=== PATIENT | female | born 1990 | race Caucasian/White ===

== ENCOUNTER → 2018-01-29 16:38 | Outpatient (CLI) | payer OTHER, SELFPAY ==
[2018-01-29 17:47] LABS: Absolute Lymphocyte Count 2.27 X10^3/ul (0.83-4.51); Absolute Neutrophil Count 5.4 X10^3/uL (2.0-7.7); Basophil# 0.04 X10^3/uL; Basophil% 0.5 % (0-1); Eosinophil# 0.14 X10^3/uL; Eosinophils% 1.6 % (0-5); Hematocrit 40.2 % (37-47); Lymphocyte # 2.27 X10^3/ul (4.0); Lymphocyte % 26.3 % (19-41); Mean Corp Hgb Conc 34.8 g/gl (32-36); Mean Corpuscular Volume 86.3 fL (81-99); Mean Platelet Vol. 12.6 fl (6.2-12.0); Monocyte# 0.76 X10^3/uL; Monocyte% 8.8 % (0-10); Neutrophil % 62.7 % (47-70); Platelet Count 223 K/mm3 (150-450); RBC Distribution Width CV 12.5 % (11.6-14.6); RBC Distribution Width SD 38.7 fl (35.1-43.9); Red Blood Count 4.66 M/mm3 (4.2-5.4); White Blood Count 8.6 K/mm3 (4.4-11.0)
[2018-01-29 17:50] LABS: POSITIVE COUNT NO; POSITIVE DIFFERENTIAL NO; POSITIVE MORPHOLOGY NO
[2018-01-29 19:10] LABS: HIV - WCH Non-Reactive (Nonreactive); Rubella IgG 178.9 IU/mL
[2018-01-30 01:00] LABS: Chlamydia Trachomatis by PCR Negative (Negative); Neisserai gonorrhoeae by PCR Negative (Negative); Probe Check PASS; Sample Adequacy Control PASS; Specimen Processing Control PASS
[2018-01-31 11:27] LABS: HEPATITIS B SURFACE AG Negative (Negative)
[2018-02-01 12:29] LABS: HPV Reflexed? NOT INDICATED
[2018-02-02 02:58] LABS: Rapid Plasmin Reagin (RPR) NONREACTIVE (NONREACTIVE)
== END ==
PROVIDERS: Visit Provider Obstetrics & Gynecology
DX: Z34.91 Encounter for supervision of normal pregnancy, unspecified, first trimester (principal); Z3A.00 Weeks of gestation of pregnancy not specified
CPT/HCPCS: 36415; 85025; 86592; 86703; 86762; 86850; 86900; 87086; 87340; 87491; 87591; 88175; G0145

== ENCOUNTER → 2018-02-26 09:01 | Outpatient (CLI) | payer OTHER, SELFPAY | DX: Z36.82 Encounter for antenatal screening for nuchal translucency (principal) | CPT/HCPCS: 36415 ==

== ENCOUNTER 2018-02-27 16:54 | Emergency (ER) | payer OTHER, SELFPAY ==
[2018-02-27 16:56] VITALS: BP 146/78; PULSE 80; RESP 16; TEMP 36.6; O2SAT 97; BMI 30.9
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
--- NOTE | 2018-02-27 17:23 | ED.DEP ---
ED Disposition - Plan for ED Patient: Disposition: Home or Assisted Living Chief Complaint: Abd Pain Instructions: ED Abdominal Injury Blunt Benign Referrals: Hang Luna [Primary Care Provider] - Shanelle Chaparro MD [STAFF PHYSICIAN] - Keep Elian appointment [facility] [GROUP OF PHYSICIANS] - 3-5 Days
== END 2018-02-27 17:52 | disposition home or self-care (01) ==
LOC: ED 17:40
PROVIDERS: Emergency Provider Emergency Medicine
DX: O9A.211 Injury, poisoning and certain other consequences of external causes complicating pregnancy, first trimester (principal); S39.91XA Unspecified injury of abdomen, initial encounter; Y04.2XXA Assault by strike against or bumped into by another person, initial encounter; Y93.89 Activity, other specified; Y92.89 Other specified places as the place of occurrence of the external cause; Y99.0 Civilian activity done for income or pay; Z79.899 Other long term (current) drug therapy; Z3A.13 13 weeks gestation of pregnancy
CPT/HCPCS: 99282

== ENCOUNTER → 2018-03-29 16:52 | Outpatient (CLI) | payer OTHER, SELFPAY ==
[2018-03-29 19:19] LABS: Chlamydia Trachomatis by PCR Negative (Negative); Neisserai gonorrhoeae by PCR Negative (Negative); Probe Check PASS; Sample Adequacy Control PASS; Specimen Processing Control PASS
== END ==
PROVIDERS: Visit Provider Nurse Practitioner Women's Health
DX: N89.8 Other specified noninflammatory disorders of vagina (principal)
CPT/HCPCS: 87070; 87205; 87491; 87591

== ENCOUNTER 2018-04-10 18:27 | Outpatient (CLI) | payer OTHER, SELFPAY | END 2018-04-10 18:40 | disposition home or self-care (01) | LOC: LAB.FUTURE 18:31 | DX: Z36.9 Encounter for antenatal screening, unspecified (principal) ==

== ENCOUNTER → 2018-04-10 18:35 | Outpatient (CLI) | payer OTHER, SELFPAY ==
--- NOTE | 2018-04-10 18:33 | US_ITS ---
STUDY: SECOND AND THIRD TRIMESTER OBSTETRICAL ULTRASOUND REASON FOR EXAM: Female, 27 years old. ANATOMY SCAN LMP: TECHNIQUE: Transabdominal PRIOR ULTRASOUND: None. FINDINGS: There is a single intrauterine fetus. The fetus is in a cephalic presentation. There is demonstrated cardiac activity with a heart rate of 155 bpm. There is a normal amniotic fluid volume. The largest amniotic fluid pocket measures 3.8 cm. The placenta is posterior in location and is not low lying. There are Grade 1 placental changes. The cervix measures 33MM in length. The adnexal regions are not visualized. BIOMETRY: BPD: 43MM: 19 weeks, 0 days HC: 163MM: 19 weeks, 1 days AC: 139MM: 19 weeks, 2 days FL: 29MM: 18 weeks, 6 days CI: 79 FL/BPD: 68 FL/HC: FL/AC: 21 HC/AC: 1.18 age by current US: 19 weeks, 1 days. ERICK by current US: 10.15.18. Estimated weight: 272 grams, +/- 40 grams, 26 %. Age by LMP: 19 weeks, 3 days. ERICK by LMP: 10.13.18. ANATOMY: Gender: Male Cranium: Normal lateral ventricles. Normal choroid plexus. Normal cerebellum. Normal cisterna magna. Normal face, nose and lips. Chest: Normal 4-chamber heart. Abdomen/Pelvis: Normal diaphragm. Normal stomach. Normal abdominal wall. Normal cord insertion. Normal 3 vessel cord. Normal kidneys. Normal bladder. Spine: Normal cervical spine. Normal thoracic spine. Normal lumbar spine. Normal sacrum. Extremities: Normal bilateral upper extremities. Normal bilateral lower extremities. US/OB Anatomy Scan IMPRESSION: There is a single live intrauterine with a heart rate of 155 bpm. age by current US: 19 weeks, 1 days. ERICK by current US: 10.15.18. Normal anatomic survey Electronically Signed: Dereck Bush MD at 20:40 EDT , Service support ,
== END ==
PROVIDERS: Visit Provider Nurse Practitioner Women's Health
DX: Z36.9 Encounter for antenatal screening, unspecified (principal); Z3A.19 19 weeks gestation of pregnancy
CPT/HCPCS: 76805

== ENCOUNTER → 2018-06-06 15:42 | Outpatient (CLI) | payer OTHER, SELFPAY ==
[2018-06-06 17:23] LABS: Absolute Lymphocyte Count 2.25 X10^3/ul (0.83-4.51); Absolute Neutrophil Count 9.7 X10^3/uL (2.0-7.7); Basophil# 0.02 X10^3/uL; Basophil% 0.2 % (0-1); Eosinophil# 0.17 X10^3/uL; Eosinophils% 1.3 % (0-5); Hematocrit 35.4 % (37-47); Hemoglobin 12.1 g/dl (12.0-15.0); Lymphocyte # 2.25 X10^3/ul (4.0); Lymphocyte % 17.4 % (19-41); Mean Corp Hgb Conc 34.2 g/gl (32-36); Mean Corpuscular Hgb 31.1 pg (27.0-32.0); Mean Platelet Vol. 11.5 fl (6.2-12.0); Monocyte# 0.75 X10^3/uL; Monocyte% 5.8 % (0-10); Neutrophil # 9.66 X10^3/uL (2.7-7.7); Neutrophil % 74.5 % (47-70); Platelet Count 182 K/mm3 (150-450); RBC Distribution Width CV 13.1 % (11.6-14.6); Red Blood Count 3.89 M/mm3 (4.2-5.4)
[2018-06-06 17:27] LABS: POSITIVE COUNT NO; POSITIVE DIFFERENTIAL NO; POSITIVE MORPHOLOGY NO
[2018-06-06 17:33] LABS: Glucose Challenge Gest 1H 50g 121 mg/dL (70-140)
== END ==
PROVIDERS: Visit Provider Nurse Practitioner Women's Health
DX: Z34.92 Encounter for supervision of normal pregnancy, unspecified, second trimester (principal); Z3A.26 26 weeks gestation of pregnancy
CPT/HCPCS: 82950; 85025

== ENCOUNTER → 2018-07-31 17:03 | Outpatient (CLI) | payer OTHER, SELFPAY ==
[2018-07-31 18:03] LABS: Protein, Urine (Random) 35.6 mg/dL (<11.9); Protein:Creat Ratio 183 mg/g CRE (0-200)
== END ==
PROVIDERS: Visit Provider Obstetrics & Gynecology
DX: R80.9 Proteinuria, unspecified (principal)
CPT/HCPCS: 82570; 84156

== ENCOUNTER → 2018-08-07 15:54 | Outpatient (CLI) | payer OTHER, SELFPAY ==
[2018-08-07 20:35] LABS: Group B Strep DNA By PCR Negative (Negative); Internal Control PASS; Probe Check PASS; Specimen Processing Control PASS
== END ==
PROVIDERS: Visit Provider Nurse Practitioner Women's Health
DX: Z34.91 Encounter for supervision of normal pregnancy, unspecified, first trimester (principal)
CPT/HCPCS: 87081; 87653

== ENCOUNTER → 2018-08-14 12:25 | Outpatient (CLI) | payer OTHER, SELFPAY ==
[2018-08-14 12:47] LABS: ROM Internal Control Test YES-OK TO RESULT pt. (Internal QC); ROM Patient Test Negative (Negative)
== END ==
PROVIDERS: Referring Provider Nurse Practitioner Women's Health; Visit Provider Nurse Practitioner Women's Health
DX: O26.899 Other specified pregnancy related conditions, unspecified trimester (principal); N89.8 Other specified noninflammatory disorders of vagina
CPT/HCPCS: 84112

== ENCOUNTER 2018-08-30 09:30 | Inpatient (IN) | payer OTHER, SELFPAY ==
[2018-08-30 09:49] VITALS: BMI 35.5
[2018-08-30 10:14] LABS: Hematocrit 37.2 % (37-47); Hemoglobin 13.1 g/dl (12.0-15.0); Mean Corp Hgb Conc 35.2 g/gl (32-36); Mean Corpuscular Hgb 31.3 pg (27.0-32.0); Mean Corpuscular Volume 88.8 fL (81-99); Mean Platelet Vol. 11.4 fl (6.2-12.0); Platelet Count 183 K/mm3 (150-450); RBC Distribution Width CV 13.7 % (11.6-14.6); RBC Distribution Width SD 43.5 fl (35.1-43.9); Red Blood Count 4.19 M/mm3 (4.2-5.4); White Blood Count 11.8 K/mm3 (4.4-11.0)
[2018-08-30 10:19] LABS: Scan Indicated on CBC? Y/N NO
[2018-08-30] MEDS: Lactated Ringers 1,000 ML 50 ML IV ×3 (10:30→18:14)
[2018-08-30] MEDS: Oxytocin 30 units/NS 500 ml 30 UNITS/500 ML IV.SOLN IV (10:47)
[2018-08-30] MEDS: fentaNYL-bupivacaine (epidural) 100 ML BAG EPIDURAL (14:53)
--- NOTE | 2018-08-30 17:39 | PCM.HP.OB ---
- Problem List (1) tubal ligation planned Status: Acute (2) screening encounter Status: Acute Comment: NT done 02/26/18 (3) Supervision of normal in first trimester Status: Acute Qualifiers: Comment: PRR ERICK 09/01/18 [facility] Melody Ramos gary History Date of Admission: 08/30/18 Final ERICK: 09/01/18 Gestational age: 39 Weeks and 5 Days History of this : This is a 27 year-old, at 39 weeks gestational age presents for IOL secondary to maternal request. she denies any abnormal vb lof admits good fm no regular ctx. Surgical History: Surgical History (Last Reviewed 08/20/18 @ 12:19 by Miriam Ariza) Cholecystectomy planned Allergies amoxicillin Adverse Reaction (Verified 08/30/18 10:09) Fever and skin rash Penicillins Adverse Reaction (Verified 08/30/18 10:09) Fever and skin rash Home Medications: Home Medications Vits [Prenatabs FA ] 1 tab PO DAILY 11/17/13 loratadine 10 mg tablet 10 mg PO QDAY 01/22/18 Smoking Status: Light Smoker (<10/day) Alcohol: None Number of Fetus(es): 1 Heart Tracin moderate variability reactive no decels cat I TOCO Analysis: irregular History Past Pregnancies: Past PregnanciesPregancy History 4 Elective abortions Hx Para 2 Spontaneous abortions Hx # Term Pregnancies Ectopic pregnancies Hx # Pregnancies Multiple births # of living children Past Pregnancies Del. Date Name GA/Weeks Outcome Route Bth Weight Infant Gen Labor Lgth Anesthesia Del Locatn Provider FOB Unknown 2013 Rachel live - full term [id number] SM Unknown 2015 Melody Caraballo live - full term [id number] SM Expected Delivery Method: Spontaneous Vaginal Describe any other labor & delivery plans:: OB Visit. ERICK Calculator. Estimated Delivery Date 09/01/18. Based on LMP (certain) 11/25/17. Current WG 39w 2d. Number 1. Expected Delivery Route/Plan. . Specific Issue/Plans. flu vaccine given. minichart given: []. tdap vaccine: considering. rhogam: NA. LARC form signed: declines/plans BTO. labor support person: Gary. pain management: epidural. cut cord/dad catch: yes. : yes Review of Systems Constitutional: Denies: Fever, Malaise Eyes: Denies: Blurred vision, Vision Change HEENT: Denies: Head Aches, Visual Changes Cardiovascular: Denies: Chest Pain, Palpitations Respiratory: Denies: Cough, Shortness of Breath, Wheezing Gastrointestinal: Denies: Abdominal Pain, Diarrhea, Nausea, Vomiting Genitourinary: Denies: Dysuria, Hematuria Musculoskeletal: Denies: Joint Pain, Muscle pain Skin: Denies: Lesions, Rash Neurological: Denies: Blurred vision, Focal weakness, Headaches Psychiatric: Denies: Anxiety, Depression Endocrine: Denies: Heat/ Cold Intolerance Hematologic/ Lymphatic: Denies: Easy Bruising, Easy Bleeding Physical Exam General: Alert, Cooperative, No apparent distress HEENT: Atraumatic, Normocephalic. Negative for: Thyromegaly, Lymphadenopathy Cardiovascular: Regular rate Lungs: Normal air movement Abdomen: Soft, Non Tender, Gravid Neurological: Deep Tendon Reflexes 2+/4 and Symmetrical, Neuro grossly intact. Negative for: Clonus PARKING SUPERVISOR: Normal external genitalia. Negative for: Vulvar lesions Estimated gestational size: Appropriate for gestational size Presentation: Cephalic Assessment/Plan All Active Problems (Last Reviewed 08/27/18 @ 11:27 by Nola Land) tubal ligation planned (Acute) screening encounter (Acute) Supervision of normal in first trimester (Acute) This is a 27 year-old, at 39 weeks gestational age. Patient presents IOL pit Pain management: plans epidural. GBS negative Management of any complications: none I have reviewed the [facility] and made any clinically relevant updates.
--- NOTE | 2018-08-30 17:44 | HP.PCM_ITS ---
- Problem List (1) tubal ligation planned Status: Acute (2) screening encounter Status: Acute Comment: NT done 02/26/18 (3) Supervision of normal in first trimester Status: Acute Qualifiers: Comment: PRR ERICK 09/01/18 [facility] Melody Ramos gary History Date of Admission: 08/30/18 Final ERICK: 09/01/18 Gestational age: 39 Weeks and 5 Days History of this : This is a 27 year-old, at 39 weeks gestational age presents for IOL secondary to maternal request. she denies any abnormal vb lof admits good fm no regular ctx. Surgical History: Surgical History (Last Reviewed 08/20/18 @ 12:19 by Miriam Ariza) Cholecystectomy planned Allergies amoxicillin Adverse Reaction (Verified 08/30/18 10:09) Fever and skin rash Penicillins Adverse Reaction (Verified 08/30/18 10:09) Fever and skin rash Home Medications: Home Medications Vits [Prenatabs FA ] 1 tab PO DAILY 11/17/13 loratadine 10 mg tablet 10 mg PO QDAY 01/22/18 Smoking Status: Light Smoker (<10/day) Alcohol: None Number of Fetus(es): 1 Heart Tracin moderate variability reactive no decels cat I TOCO Analysis: irregular History Past Pregnancies: Past PregnanciesPregancy History 4 Elective abortions Hx Para 2 Spontaneous abortions Hx # Term Pregnancies Ectopic pregnancies Hx # Pregnancies Multiple births # of living children Past Pregnancies Del. Date Name GA/Weeks Outcome Route Bth Weight Infant Gen Labor Lgth Anesthesia Del Locatn Provider FOB Unknown 2013 Rachel live - full term [id number] SM Unknown 2015 Melody Caraballo live - full term [id number] SM Expected Delivery Method: Spontaneous Vaginal Describe any other labor & delivery plans:: OB Visit. ERICK Calculator. Estimated Delivery Date 09/01/18. Based on LMP (certain) 11/25/17. Current WG 39w 2d. Number 1. Expected Delivery Route/Plan. . Specific Issue/Plans. flu vaccine given. minichart given: []. tdap vaccine: considering. rhogam: NA. LARC form signed: declines/plans BTO. labor support person: Gary. pain management: epidural. cut cord/dad catch: yes. : yes Review of Systems Constitutional: Denies: Fever, Malaise Eyes: Denies: Blurred vision, Vision Change HEENT: Denies: Head Aches, Visual Changes Cardiovascular: Denies: Chest Pain, Palpitations Respiratory: Denies: Cough, Shortness of Breath, Wheezing Gastrointestinal: Denies: Abdominal Pain, Diarrhea, Nausea, Vomiting Genitourinary: Denies: Dysuria, Hematuria Musculoskeletal: Denies: Joint Pain, Muscle pain Skin: Denies: Lesions, Rash Neurological: Denies: Blurred vision, Focal weakness, Headaches Psychiatric: Denies: Anxiety, Depression Endocrine: Denies: Heat/ Cold Intolerance Hematologic/ Lymphatic: Denies: Easy Bruising, Easy Bleeding Physical Exam General: Alert, Cooperative, No apparent distress HEENT: Atraumatic, Normocephalic. Negative for: Thyromegaly, Lymphadenopathy Cardiovascular: Regular rate Lungs: Normal air movement Abdomen: Soft, Non Tender, Gravid Neurological: Deep Tendon Reflexes 2+/4 and Symmetrical, Neuro grossly intact. Negative for: Clonus WELFARE VISITOR: Normal external genitalia. Negative for: Vulvar lesions Estimated gestational size: Appropriate for gestational size Presentation: Cephalic Assessment/Plan All Active Problems (Last Reviewed 08/27/18 @ 11:27 by Nola Land) tubal ligation planned (Acute) screening encounter (Acute) Supervision of normal in first trimester (Acute) This is a 27 year-old, at 39 weeks gestational age. Patient presents IOL pit Pain management: plans epidural. GBS negative Management of any complications: none I have reviewed the [facility] and made any clinically relevant updates.
[2018-08-30] MEDS: Ondansetron 4 MG/2 ML Vial IV (17:51)
[2018-08-30] MEDS: Oxytocin 30 units/NS 500 ml 30 UNITS/500 ML IV.SOLN 334 UNITS IV (19:26)
--- NOTE | 2018-08-30 19:34 | PCM.OB.VAG ---
- Problem List (1) tubal ligation planned Status: Acute (2) screening encounter Status: Acute Comment: NT done 02/26/18 (3) Supervision of normal in first trimester Status: Acute Qualifiers: Comment: PRR ERICK 09/01/18 [facility] Melody Ramos gary Vaginal Delivery Maternal Presentation: Elective Induction Induction of labor maternal discomfort and request Method of Induction: Pitocin Amniotic Membrane Rupture Type: Artificial Amniotic Fluid Description: Clear Final ERICK: 09/01/18 Gestational age: 39 Weeks and 5 Days Date of Procedure: 08/30/18 Pre-Operative Diagnosis: Induction of labor Post-Operative Diagnosis: Same Surgery/ Procedure Performed: Spontaneous Vaginal Delivery Type of Anesthesia: Epidural Description of Procedure: Patient began pushing and delivered the head in the TANNER presentation. The head was delivered atraumatically. The anterior and posterior shoulders delivered without complication followed by the rest of the and the infant was placed on the maternal abdomen. Delayed cord clamping was employed for approximately 60 seconds. Cord was clamped and cut and gentle traction was applied to the cord and the placenta delivered spontaneously immediately following it was noted to be intact with three-vessel cord. The perineum and vagina were inspected and noted to have no laceration. EBL was 200 cc. Patient and infant tolerated delivery well. Presentation: TANNER Placental Delivery Description: Spontaneous Placenta Disposition: [facility] Cord Vessel Description: 3 Vessels Cord Entanglement: None Estimated Blood Loss: 200 Infant A gender: Male Episiotomy Description: None Laceration: None Medications given after delivery: IV Pitocin Complications: None
--- NOTE | 2018-08-30 19:35 | PCM.DCVAG ---
Discharge Diet: No Restrictions Discharge Activity: Return to Normal Activity, May not drive while taking narcotic pain medications., May Shower May resume sexual activity in: 4-6 weeks Call your doctor if your incision/area has: Continuous Slow Oozing, Sudden Increased Bleeding, Increased Pain/ Swelling, Increased Redness, Foul Smelling Discharge Additional Instructions: If you experience any of the following, contact your healthcare provider. Bleeding that soaks a pad every hour for 2 hours Fever 100.4 or higher Unrelieved incision or abdominal pain Swelling, redness, discharge or bleeding from your incision or episiotomy site Your incision begins to separate Problems urinating (including inability to urinate or burning while urinating). Visual changes Severe headache Flu-like symptoms Pain or redness in one of both of your breasts Pain, warmth, tenderness or swelling in your legs, especially the calf area Frequent nausea and vomiting Symptoms of depression or anxiety If you experience any of the following, call 911 or go to the nearest Emergency Room. Chest pain Problems breathing Seizure activity Partial or complete paralysis of a body part, slurred speech, weakness or drooping of the face, or a sudden inability to walk or hold your balance Allergies/Adverse Reactions: Allergies amoxicillin Adverse Reaction (Verified 08/30/18 10:09) Fever and skin rash Penicillins Adverse Reaction (Verified 08/30/18 10:09) Fever and skin rash Medications to take at Discharge Vits [Prenatabs FA ] 1 tab PO DAILY 11/17/13 loratadine 10 mg tablet 10 mg PO QDAY 01/22/18 Please Follow Up With: Shanelle Chaparro MD - [phone] When: Call to make an appointment with your doctor in 6 weeks. If you had elevated Blood pressure or 4th degree laceration you will need to be seen in 2 weeks. Primary Care Physician: Care Physician,No Primary [Primary Care Provider] - Test Results: Test results from this visit will be discussed in further detail at your follow-up appointment, if applicable.
--- NOTE | 2018-08-30 19:36 | DCINST_ITS ---
Discharge Diet: No Restrictions Discharge Activity: Return to Normal Activity, May not drive while taking narcotic pain medications., May Shower May resume sexual activity in: 4-6 weeks Call your doctor if your incision/area has: Continuous Slow Oozing, Sudden Increased Bleeding, Increased Pain/ Swelling, Increased Redness, Foul Smelling Discharge Additional Instructions: If you experience any of the following, contact your healthcare provider. * Bleeding that soaks a pad every hour for 2 hours * Fever 100.4 or higher * Unrelieved incision or abdominal pain * Swelling, redness, discharge or bleeding from your incision or episiotomy site * Your incision begins to separate * Problems urinating (including inability to urinate or burning while urinating). * Visual changes * Severe headache * Flu-like symptoms * Pain or redness in one of both of your breasts * Pain, warmth, tenderness or swelling in your legs, especially the calf area * Frequent nausea and vomiting * Symptoms of depression or anxiety If you experience any of the following, call 911 or go to the nearest Emergency Room. * Chest pain * Problems breathing * Seizure activity * Partial or complete paralysis of a body part, slurred speech, weakness or drooping of the face, or a sudden inability to walk or hold your balance Allergies/Adverse Reactions: Allergies amoxicillin Adverse Reaction (Verified 08/30/18 10:09) Fever and skin rash Penicillins Adverse Reaction (Verified 08/30/18 10:09) Fever and skin rash Medications to take at Discharge Vits [Prenatabs FA ] 1 tab PO DAILY 11/17/13 loratadine 10 mg tablet 10 mg PO QDAY 01/22/18 Please Follow Up With: Shanelle Chaparro MD - [phone] When: Call to make an appointment with your doctor in 6 weeks. If you had elevated Blood pressure or 4th degree laceration you will need to be seen in 2 weeks. Primary Care Physician: Care Physician,No Primary [Primary Care Provider] - Test Results: Test results from this visit will be discussed in further detail at your follow- up appointment, if applicable.
[2018-08-30] MEDS: Oxytocin 30 units/NS 500 ml 30 UNITS/500 ML IV.SOLN 167 UNITS IV (19:56)
[2018-08-31] VITALS (11 sets, daily range): BP systolic 105–120; BP diastolic 57–74; PULSE 75–89; RESP 16–18; TEMP 36.1–36.9; O2SAT 96–98; BMI 35.5
[2018-08-31] MEDS: Naproxen 250 MG Tablet PO ×3 (00:09→16:59)
[2018-08-31] MEDS: 0.9% Saline Lock 10 ML Syringe IV (06:21)
[2018-08-31] MEDS: Lactated Ringers 1,000 ML 125 ML IV ×2 (06:21→08:20)
--- NOTE | 2018-08-31 07:37 | PCM.OPRPT ---
Problem List (1) tubal ligation planned Status: Acute (2) screening encounter Status: Acute Comment: NT done 02/26/18 (3) Supervision of normal in first trimester Status: Acute Qualifiers: Comment: PRR ERICK 09/01/18 Boy-Gary Ramos gary Report of Operation Date of Procedure: 08/31/18 Pre-Operative Diagnosis: sterilization Surgery/Procedure Performed:: tubal ligation Description of Surgical Findings:: Normal uterus tubes and ovaries Type of Anesthesia:: Epidural, IV Sedation Specimen's removed: None Drains: rogers Estimated Blood Loss (mL): 200 Fluids Replaced: cryStalloid Description of Procedure: Patient was taken to the operating room and epidural anesthesia was found to be adequate. Patient was placed in the dorsal supine position was prepped and draped in normal sterile fashion. Rogers catheter was used to drain the bladder. Infra umbilical incision was made with a scalpel after injecting with marcaine and carried through the underlying layer of the fascia with a scalpel fascial incision was extended bilaterally with Randolph scissors and bowel packed away and the right fallopian tube identified confirmed to be fallopian tube by following it out to the fimbria and a Filshie clip was applied in the mid interstitial portion of the fallopian tube noting to completely transect the tube. This was repeated on the left side where the tube was identified and followed out to the fimbria and confirmed to be fallopian tube and then the mid interstitial portion of the tube was completely transected with the Filshie clip. Excellent hemostasis was noted. Fascia was closed with 0 Vicryl and skin closed with 3-0 Monocryl. No complications. Patient was taken recovery in stable condition. Grafts/Implants Used: filshie - Complications none
--- NOTE | 2018-08-31 07:37 | PCM.PN.OB ---
Subjective: doing well no complaints - Physical Exam Vital Signs Temp Pulse Resp BP Pulse Ox 97.3 F L 82 16 114/67 98 08/31/18 04:35 08/31/18 04:35 08/31/18 04:35 08/31/18 04:35 08/31/18 00:00 Oxygen Delivery Method Room Air Weight: 200 lb 9.93 oz Body Mass Index (BMI) 35.5 Intake and Output for Last 24 Hours 08/29/18 08/30/18 08/31/18 23:59 23:59 23:59 Intake Total 480 / 480 Output Total 2200 / 2200 500 / 500 Balance -1720 / -1720 -500 / -500 Laboratory Tests Past 24 Hrs 08/30/18 08/30/18 09:50 09:50 WBC 11.8 H RBC 4.19 L Hgb 13.1 Hct 37.2 MCV 88.8 MCH 31.3 MCHC 35.2 RDW 13.7 RDW Differential 43.5 Plt Count 183 MPV 11.4 Blood Type O POSITIVE Antibody Screen NEGATIVE Medical Necessity - Tobacco Use Smoking Status: Light Smoker (<10/day) Assessment/Plan All Active Problems (Last Reviewed 08/27/18 @ 11:27 by Nola Land) tubal ligation planned (Acute) screening encounter (Acute) Supervision of normal in first trimester (Acute) tubal today will await recovery to see if dc today or tomorrow
[2018-08-31] MEDS: Bupivacaine Mpf 0.5% 30 ML VIAL (07:46)
[2018-08-31] MEDS: Senna/Docusate Sodium 1 Tablet PO (09:05)
[2018-08-31] MEDS: Prenatal Vits Tablet 1 TABLET PO (13:46)
[2018-08-31] MEDS: Acetaminophen 500 MG Tablet 1000 MG PO (13:46)
[2018-08-31] MEDS: oxyCODONE 5 MG Tablet PO (19:43)
[2018-09-01] MEDS: oxyCODONE 5 MG Tablet PO ×3 (00:05→09:51)
[2018-09-01 02:06] VITALS: BP 103/59; PULSE 70; RESP 16; TEMP 36.7; O2SAT 96
[2018-09-01 07:55] VITALS: BP 114/63; PULSE 77; RESP 16; TEMP 36.7
[2018-09-01] MEDS: Prenatal Vits Tablet 1 TABLET PO (09:51)
--- NOTE | 2018-09-01 10:23 | PCM.PN.OB ---
Subjective: doing well pain controlled no cp sob n v - Physical Exam General: Alert, Oriented x3 Vital Signs Temp Pulse Resp BP Pulse Ox 98.1 F 77 16 114/63 96 09/01/18 07:55 09/01/18 07:55 09/01/18 07:55 09/01/18 07:55 09/01/18 02:06 Oxygen Delivery Method Room Air Weight: 200 lb 9.93 oz Body Mass Index (BMI) 35.5 Intake and Output for Last 24 Hours 08/30/18 08/31/18 09/01/18 23:59 23:59 23:59 Intake Total 480 / 480 500 / 500 Output Total 2200 / 2200 1300 / 1300 Balance -1720 / -1720 -800 / -800 Medical Necessity - Tobacco Use Smoking Status: Light Smoker (<10/day) Assessment/Plan All Active Problems (Last Reviewed 08/27/18 @ 11:27 by Nola Land) tubal ligation planned (Acute) screening encounter (Acute) Supervision of normal in first trimester (Acute) s/p PPD # 2 1. routine post delivery care 2. breast feeding- support given 3. rh positive 4. rubella immune
== END 2018-09-01 11:25 | disposition home or self-care (01) | DRG 798 ==
PROVIDERS: Admitting Provider Obstetrics & Gynecology; Referring Provider Obstetrics & Gynecology; Visit Provider Obstetrics & Gynecology
PROC: 0UL70ZZ Occlusion of Bilateral Fallopian Tubes, Open Approach (ICD-10-PCS; principal; 2018-08-31 07:15)
DX: O75.89 Other specified complications of labor and delivery (principal); O99.334 Smoking (tobacco) complicating childbirth; Z30.2 Encounter for sterilization; Z3A.39 39 weeks gestation of pregnancy; Z37.0 Single live birth
CPT/HCPCS: 59025; 59050; 85027; 86850; 86900; 99218; J7120; 90686; A4216; G0378; J2405

== ENCOUNTER → 2019-10-24 17:09 | Outpatient (CLI) | payer BC, SELFPAY ==
[2019-10-24 16:07] VITALS: BMI 32.6
[2019-10-24 17:28] LABS: Absolute Lymphocyte Count 2.43 X10^3/uL (0.83-4.51); Absolute Neutrophil Count 6.4 X10^3/uL (2.0-7.7); Basophil# 0.07 X10^3/uL; Basophil% 0.7 % (0-1); Eosinophil# 0.17 X10^3/uL; Eosinophils% 1.7 % (0-5); Hematocrit 44.4 % (37-47); Lymphocyte # 2.43 X10^3/ul (4.0); Lymphocyte % 24.6 % (19-41); Mean Corp Hgb Conc 33.8 g/dL (32-36); Mean Corpuscular Hgb 29.4 pg (27.0-32.0); Mean Corpuscular Volume 86.9 fL (81-99); Mean Platelet Vol. 12.2 fl (6.2-12.0); Monocyte# 0.74 X10^3/uL; Monocyte% 7.5 % (0-10); NRBC Flagged by Analyzer 0 % (0-5); Neutrophil # 6.43 X10^3/uL (2.7-7.7); Neutrophil % 65.1 % (47-70); Platelet Count 269 K/mm3 (150-450); RBC Distribution Width CV 12.1 % (11.6-14.6); RBC Distribution Width SD 38.5 fl (35.1-43.9); Red Blood Count 5.11 M/mm3 (4.2-5.4); White Blood Count 9.9 K/mm3 (4.4-11.0)
[2019-10-24 18:17] LABS: T4 Free Direct 1.01 ng/dL (0.76-1.46); Thyroid Stim Hormone (TSH) 1.63 uIU/mL (0.358-3.74)
== END ==
PROVIDERS: Referring Provider Obstetrics & Gynecology; Visit Provider Obstetrics & Gynecology
DX: N93.9 Abnormal uterine and vaginal bleeding, unspecified (principal)
CPT/HCPCS: 36415; 84439; 84443; 85025

== ENCOUNTER → 2019-11-01 11:17 | Outpatient (CLI) | payer BC, SELFPAY ==
[2019-10-24 16:07] VITALS: BMI 32.6
--- NOTE | 2019-11-01 11:20 | US_ITS ---
STUDY: ULTRASOUND OF THE FEMALE PELVIS - COMPLETE REASON FOR EXAM: Female, 29 years old. . Dysfunctional uterine bleeding. LMP: October 04, 2019. TECHNIQUE: Transabdominal and Transvaginal TECHNICAL QUALITY: Adequate. COMPARISON: None. FINDINGS: The uterus is anteverted and is in a midline position. The uterus measures 8.7 cm x 4.1 cm x 4.8 cm. There is a Nabothian cyst of the cervix. The endometrium measures 9.3 mm in thickness, and is hyperechoic. There is no demonstrated endometrial mass. There is no demonstrated myometrial mass. I.U.D. - The patient does not have an I.U.D. The right ovary is visualized. The right ovary measures 3.3 cm x 2.2 cm x 2.4 cm. There is no right ovarian cyst or ovarian mass. There is no visualized right adnexal mass or complex lesion. There is normal arterial and normal venous vascularity. The left ovary is visualized. The left ovary measures 2.2 cm x 2.2 cm x 1.5 cm. There is no left ovarian cyst or ovarian mass. There is no visualized left adnexal mass or complex lesion. There is normal arterial and normal venous vascularity. There is no fluid in the cul-de-sac. The pre void volume of the bladder was 615 ml. Polycystic ovary disease: No. US/Pelvic (Non ) IMPRESSION: Normal female pelvis. Electronically Signed: Inocente Cary, at 14:48 EST , Service support ,
--- NOTE | 2019-11-01 11:44 | US_ITS ---
STUDY: ULTRASOUND OF THE FEMALE PELVIS - COMPLETE REASON FOR EXAM: Female, 29 years old. . Dysfunctional uterine bleeding. LMP: October 04, 2019. TECHNIQUE: Transabdominal and Transvaginal TECHNICAL QUALITY: Adequate. COMPARISON: None. FINDINGS: The uterus is anteverted and is in a midline position. The uterus measures 8.7 cm x 4.1 cm x 4.8 cm. There is a Nabothian cyst of the cervix. The endometrium measures 9.3 mm in thickness, and is hyperechoic. There is no demonstrated endometrial mass. There is no demonstrated myometrial mass. I.U.D. - The patient does not have an I.U.D. The right ovary is visualized. The right ovary measures 3.3 cm x 2.2 cm x 2.4 cm. There is no right ovarian cyst or ovarian mass. There is no visualized right adnexal mass or complex lesion. There is normal arterial and normal venous vascularity. The left ovary is visualized. The left ovary measures 2.2 cm x 2.2 cm x 1.5 cm. There is no left ovarian cyst or ovarian mass. There is no visualized left adnexal mass or complex lesion. There is normal arterial and normal venous vascularity. There is no fluid in the cul-de-sac. The pre void volume of the bladder was 615 ml. Polycystic ovary disease: No. US/Transvaginal Non- IMPRESSION: Normal female pelvis. Electronically Signed: Inocente Cary, at 14:48 EST , Service support ,
== END ==
LOC: US 11:18
PROVIDERS: Referring Provider Obstetrics & Gynecology; Visit Provider Obstetrics & Gynecology
DX: N93.8 Other specified abnormal uterine and vaginal bleeding (principal)
CPT/HCPCS: 76830; 76856; 93976

== ENCOUNTER 2019-11-26 05:35 | Day surgery (SDC) | payer BC, SELFPAY ==
[2019-10-24 16:07] VITALS: BMI 32.6
[2019-11-06 14:25] VITALS: BMI 33.1
--- NOTE | 2019-11-24 01:57 | PCM.HPOB.BLA ---
- Problem List (1) Abnormal uterine bleeding Status: Acute Comment: cbc tsh us and plan tvh bs History and Physical Date of Admission: 11/26/19 Intake Vital Signs 11/06/19 Height 5 ft 3 in 11/06/19 Weight: 187 lb 4 oz 11/06/19 BP 121/80 H Intake Visit Reasons: Pre-operative exam for gynecologic surgery [facility] Required: No Is patient in pain?: No Allergies amoxicillin Adverse Reaction (Verified 11/06/19 14:45) Fever and skin rash Penicillins Adverse Reaction (Verified 11/06/19 14:45) Fever and skin rash Medications cetirizine 10 mg capsule 10 mg PO DAILY 10/24/19 [History Confirmed 11/06/19] Post menopausal: No Patient : No : No PFSH Surgical History H/O tubal ligation (Acute) Hx of cholecystectomy (Acute) Family History Grandmother Colon cancer Social History (Updated 11/07/19 @ 04:36 by Shanelle Chaparro MD) Smoking Status: Light Smoker (<10/day) alcohol intake: never substance use type: does not use caffeine: Yes what type of physical activity do you participate in: none seatbelt use: always do you feel safe at home: Yes additional social history: [facility] Patient works at [employer] Preoperative exam for gynecologic surgery: Details: SARKIS TSE is a 29 year old who presents for preop appointment. she is having a hysterectomy for AUB not controlled with medical management. she is not a good candidate for ablation. Female Reproductive History Cycle Length: 21-35 Bleeding Duration: 7 Questions: Metorrhagia: No, Sexually active: Yes, Dyspareunia: Yes, PCB: No Pregancy History 4 Elective abortions Hx Para 3 Spontaneous abortions Hx # Term Pregnancies Ectopic pregnancies Hx # Pregnancies Multiple births # of living children Past Pregnancies Del. Date Name GA/Weeks Outcome Route Bth Weight Gen Labor Lgth Anesthesia Del Locatn Provider FOB Unknown 2013 [place] live - full term [id number] SM Unknown 2015 [facility] 39 live - full term [id number] 10/11/18 Gary Male epidural [facility] Const Constitutional: Denies fatigue, fever(s), headache(s), increased appetite, poor appetite, weight gain or weight loss ENT ENT: Denies dizziness or dry mouth Cardio Card: Denies chest pain Resp Resp: Denies cough or dyspnea GI GI: Reports as per HPI; denies abdominal pain, constipation, nausea or vomiting : Reports as per HPI; denies difficulty urinating, painful urination, pelvic pain, urinary frequency, urinary incontinence, urinary hesitancy, urinary urgency, vaginal discharge, vaginal dryness, vaginal odor or vaginal itching Musc Musc: Denies joint pain, back pain or muscle weakness Skin Skin/Breast: Denies hair loss, change in hair, dry skin, breast lump, breast pain or breast skin changes Neuro Neuro: Denies dizziness Psych Psych: Denies anxiety or depression Endo Endo: Denies cold intolerance, excessive sweating, heat intolerance or increased thirst Syed/Lymph Hematologic/Lymphatic: Denies easy bleeding, Denies easy bruising, Denies enlarged lymph nodes Exam Const General: cooperative, healthy appearing, comfortable, no acute distress, well developed Nutritional Appearance: average body habitus Orientation: alert [facility] Head: normal to inspection, normocephalic Ears: hearing grossly normal bilaterally, external ears normal Nose: external nose normal, nares normal Face and sinus: normal facial exam Neck Neck: normal visual inspection, no lymphadenopathy, trachea midline Thyroid: thyroid normal Chest Chest palpation & inspection: normal inspection of the chest Resp Effort & Inspection: normal respiratory effort Auscultation: clear to auscultation bilaterally Cardio Rate: regular rate Rhythm: regular rhythm Heart Sounds: S1 normal, S2 normal GI Inspection: normal to inspection, non-distended Palpation: soft, no hepatosplenomegaly General: bladder normal to palpation External Female Exam: normal external appearance, normal appearance of the urethra Urethra: normal appearance of the urethra, normal palpation, no discharge Speculum Exam - Vagina: normal appearance of the vagina, normal vaginal discharge Speculum Exam - Cervix: normal appearance of the cervix, nontender Bimanual Exam- Vagina & Uterus: normal bimanual exam, normal vaginal palpation, uterine size normal, bladder normal to palpation, uterine shape normal, No cervical tenderness, uterine mobility normal, uterine consistency normal, normal cervical palpation, uterus non-tender Bimanual Exam- Adnexa, other: normal adnexae, adnexae mobile, no adnexal masses, pelvic support normal Pelvic Support: normal Musc Cervical Spine: other Other: gross motor intact no deficits, full bilateral strength Skin General: no rashes or lesions noted Neuro General: alert, awake, moves all extremities, no focal motor deficits Motor: muscle tone normal throughout Extrem General: normal to inspection, no pedal edema Psych Appearance: grossly normal Mental Status: mental status grossly normal Affect: normal affect Speech and Movement: speech and movement normal Assessment & Plan Problems 1. Preoperative exam for gynecologic surgery Z01.818 2. Abnormal uterine bleeding N93.9 cbc tsh us and plan tvh bs Plan After discussing the patient's diagnosis and treatment plan options, patient wishes to proceed with surgical management. I have discussed with the patient the risks, benefits, and alternatives of the procedure which include but are not limited to risks of anesthesia, bleeding, infection, possible damage to bowel, bladder, or surrounding vasculature which could lead to additional surgery to evaluate any complications. Patient agrees to procedure and wishes to proceed. ACOG/uptodate references given for additional information regarding procedure. Coding Level of Care Code No Charge Diagnoses Preoperative exam for gynecologic surgery Z01.818 Abnormal uterine bleeding N93.9
[2019-11-26] VITALS (16 sets, daily range): BP systolic 115–152; BP diastolic 73–113; PULSE 73–97; RESP 15–16; TEMP 36.5–37.1; O2SAT 93–100; BMI 33.2
[2019-11-26 06:24] LABS: Internal QC Validated? YES +Cl - CLEAR BKGD; Pregnancy, Urine Negative Negative
[2019-11-26 06:31] LABS: Bedside Glucose 83 mg/dL (70-110)
[2019-11-26 06:35] LABS: Hematocrit 44.2 % (37-47); Mean Corp Hgb Conc 33.9 g/dL (32-36); Mean Corpuscular Hgb 29.9 pg (27.0-32.0); Mean Corpuscular Volume 88.2 fL (81-99); Mean Platelet Vol. 12.1 fl (6.2-12.0); Platelet Count 230 K/mm3 (150-450); RBC Distribution Width CV 12.5 % (11.6-14.6); RBC Distribution Width SD 40.3 fl (35.1-43.9); Red Blood Count 5.01 M/mm3 (4.2-5.4); White Blood Count 9.3 K/mm3 (4.4-11.0)
[2019-11-26] MEDS: Acetaminophen 500 MG Tablet 1000 MG PO ×3 (06:40→17:36)
[2019-11-26] MEDS: Scopolamine 1mg/72hr Patch 1 PATCH TRANSDERM. (06:41)
[2019-11-26] MEDS: Gabapentin 600 MG Tablet PO (06:43)
[2019-11-26] MEDS: Celecoxib 200 MG Capsule 400 MG PO (06:44)
[2019-11-26] MEDS: Phenazopyridine 95 MG Tablet 190 MG PO (06:45)
[2019-11-26] MEDS: Magnesium Sulfate 4gm/100mL 4 GM/100 ML IV.SOLN. IV (06:46)
[2019-11-26] MEDS: Lactated Ringers 1,000 ML 40 ML IV (06:46)
[2019-11-26] MEDS: dexAMETHasone 10 MG/ML Vial 8 MG IV (06:46)
--- NOTE | 2019-11-26 07:15 | HYST_PTH ---
PATIENT: SARKIS TSE LOC: [facility] U#:[id number] AGE/SX: 29/F ROOM: RE11/26/[address]: Dr. Shanelle Chaparro MD : 1990 BED: DIS: 11/27/2019 SPEC #: [id number] RECD: 11/26/19 09:30 STATUS: KARIE KHARI #: [id number] LINDSEY: 11/26/19 07:[address]: Shanelle Chaparro DEPT: SURGICAL PATHOLOGY RECD BY: Rosales Pearson ENTERED: 11/26/19 13:11 SP TYPE: HYSTERECT OTHR DR: No Primary Care Phys Tissues: Uterus, NOS Procedures: Surgery Specimen Level V HEADER OPERATION: ERAS, vaginal hysterectomy, bilateral salpingectomy PRE-OP DIAGNOSIS: Abnormal uterine bleeding TISSUE SUBMITTED: Cervix, vagina and bilateral fallopian tubes, left ovary MICROSCOPIC DIAGNOSIS Cervix, uterus, bilateral fallopian tubes and left ovary, vaginal hysterectomy, bilateral salpingectomy and left oophorectomy: Cervix - chronic cystic cervicitis. Endometrium - secretory endometrium. Myometrium - a minute subserosal leiomyoma (0.2 cm in greatest dimension). Bilateral fallopian tubes - no pathologic diagnosis. Left ovary - physiologic follicular and corpus luteal cysts. SJ:coby 11/27/19 MICROSCOPIC DESCRIPTION Slides are reviewed. GROSS DESCRIPTION Received in fixative is one container labeled with the patient's name and designated cervix, uterus and bilateral fallopian tubes and left ovary. The specimen consists of a hysterectomy specimen consisting of uterus with cervix, detached bilateral fallopian tubes and a separate ovary identified as left ovary. The uterus with cervix weighs 79 gm and measures 8 x 6 x 4 cm. The serosal surface is smooth, glistening. A small subserosal nodule is noted. The ectocervical mucosa is unremarkable. The external os is ovoid in contour. The endocervical canal measures 3 cm in length and the endocervical mucosa is lara, glistening and without any mass lesion. Sections of the cervix reveal a few cysts filled with mucoid material. The triangular endometrial cavity measures 4.5 cm in length and 3 cm in width. The endometrium is lara, glistening, mildly congested without any mass lesion and measures 0.2 cm in thickness. Sections of the uterine wall reveal a minute subserosal nodular mass measuring 0.2 cm in greatest dimension. The bilateral fallopian tubes are not identified as right or left. One fallopian tube measures 5 cm in length and up to 1 cm in diameter. The fimbrial end is identified. Sections reveal unremarkable cut surfaces. The second fallopian tube is received in two pieces. The proximal portion measures 3 cm in length and 0.5 cm in diameter. This piece also shows fimbrial end and measures 1.5 x 2 x 0.5 cm. The separately received ovary is previously sectioned and measures 5 x 2.5 x 1.5 cm. Sections reveal a hemorrhagic corpus luteum which measures 2 cm in greatest dimension. Sections also reveal multiple cysts filled with clear fluid. The largest cyst measures 0.5 cm in greatest dimension. Veterinary Toxicologist sections are submitted in 11 cassettes as follows: 1 - anterior cervix, 2 - posterior cervix, 3 & 4 - anterior uterine wall, 5 & 6 - posterior uterine wall, 7 - small subserosal nodular mass, entirely submitted, 8 & 9 - bilateral fallopian tubes with each cassette containing one fallopian tube, 10 & 11 - ovary identified as left ovary. / SJ:rg 11/26/19 TC:3 CPT: 16484
[2019-11-26] MEDS: Vasopressin 20 UNITS/ML Vial (07:45)
--- NOTE | 2019-11-26 08:44 | OP.PCM_ITS ---
Problem List (1) Abnormal uterine bleeding Status: Acute Comment: cbc tsh us and plan tvh bs Report of Operation Date of Procedure: 11/26/19 Pre-Operative Diagnosis: aub pain Post-Operative Diagnosis: same Surgery/Procedure Performed:: tvh bs left oophorectomy Description of Surgical Findings:: increased pelvic vasculature binding cementer french cord: Ginny Quezada Type of Anesthesia:: General Special Medications: margie Specimen's removed: uterus tubes left ovary Drains: rogers Estimated Blood Loss (mL): 200 Fluids Replaced: crystalloid Description of Procedure: Patient was taken to the operating room and was placed under general anesthesia was prepped and draped in normal sterile fashion in the dorsal lithotomy position. Preoperative antibiotics and SCDs and Rogers catheter was placed inside the bladder. Weighted speculum was placed in the vagina and the anterior and posterior lip of the cervix was grasped with 2 Soledad clamps and circumferentially injected with dilute vasopressin. A circumferential incision was made with a scalpel and the posterior cul-de-sac was entered into sharply and a longneck speculum was placed. The anterior cul-de-sac was also dissected down and entered into sharply and the uterosacral ligaments were clamped cut and suture ligated bilaterally followed by the cardinal ligaments which were Clamped cut and suture ligated bilaterally with 0 Monocryl. The uterus serially descended and progressive bites were taken bilaterally up to the level of the utero-ovarian ligament bilaterally which was clamped transected and double l igated with 0 Monocryl suture and 0 Vicryl free tie. Bilateral fallopian tubes and ovaries were well visualized and noted be within normal limits and the bilateral fallopian tubes were transected across the base with a Erika clamp and removed and sutured with 0 Vicryl suture. Persistent bleeding from the patient's left ovary which was noted to be multicystic and enlarged was noted. Margie was applied and minimal difference was noted and therefore the decision for oophorectomy was made. Was transected at the base after clamping with a Everton clamp and then double ligated with 0 Vicryl. Additional sutures on bilateral utero-ovarian and pelvic sidewall pedicles were done with 0 Vicryl to obtain hemostasis bilaterally. Excellent hemostasis was noted. the vagina was closed with [id number] 0 Vicryl pop offs including the posterior and anterior peritoneum in the reapproximation. Excellent hemostasis was noted. All instruments removed from the vagina clear urine was noted at the end of the procedure and patient was awoken and taken recovery in stable condition. Grafts/Implants Used: none - Complications none - Admit VTE Documentation VTE Present on Admission: No Multi Select Codes - Urinary/Genital Urinary/Genital CPT Codes: 05324 TVH+BS/O <250gr uterus
[2019-11-26] MEDS: Lactated Ringers 1,000 ML 70 ML IV ×2 (09:45→12:10)
[2019-11-26] MEDS: Ketorolac 30 MG/ML Syringe IV ×2 (10:28→17:34)
[2019-11-26] MEDS: oxyCODONE 5 MG Tablet PO ×3 (12:04→20:25)
[2019-11-26 12:50] LABS: Hematocrit 39.8 % (37-47); Hemoglobin 13.6 g/dL (12.0-15.0); Mean Corp Hgb Conc 34.2 g/dL (32-36); Mean Corpuscular Hgb 30.2 pg (27.0-32.0); Mean Corpuscular Volume 88.2 fL (81-99); Mean Platelet Vol. 12.1 fl (6.2-12.0); Platelet Count 221 K/mm3 (150-450); RBC Distribution Width CV 12.3 % (11.6-14.6); RBC Distribution Width SD 39.6 fl (35.1-43.9); Red Blood Count 4.51 M/mm3 (4.2-5.4)
[2019-11-26] MEDS: Ondansetron ODT 4 MG Tablet PO (14:17)
[2019-11-26] MEDS: proMETHazine 25 MG/ML Syringe 12.5 MG IV (17:34)
--- NOTE | 2019-11-26 18:58 | DCINST_ITS ---
Discharge Diet: No Restrictions Discharge Activity: Return to Normal Activity, May Not Drive, May Shower May resume sexual activity in: 6-8 weeks Call your doctor if your incision/area has: Continuous Slow Oozing, Sudden Increased Bleeding, Increased Pain/ Swelling, Increased Redness, Foul Smelling Discharge Call your doctor if you observe: Fever of 101 or Higher, Inability to urinate, Inability to have a bowel movement, Using more than one pad per hour Allergies/Adverse Reactions: Allergies amoxicillin Adverse Reaction (Verified 11/26/19 06:23) Fever and skin rash Penicillins Adverse Reaction (Verified 11/26/19 06:23) Fever and skin rash Medications to take at Discharge cetirizine 10 mg capsule 10 mg PO DAILY 10/24/19 Naproxen [Naprosyn] 250 - 500 mg PO Q8H PRN PRN #30 tab 11/26/19 Oxycodone HCl/Acetaminophen [Percocet 5-325] 1 - 2 tab PO Q6H PRN PRN 7 Days #15 tab 11/26/19 The following prescriptions were given: Naproxen [Naprosyn] 250 - 500 mg PO Q8H PRN PRN #30 tab PRN Reason: MILD PAIN Transmission Status: Received by [facility] Oxycodone HCl/Acetaminophen [Percocet 5-325] 1 - 2 tab PO Q6H PRN PRN 7 Days #15 tab PRN Reason: Pain Transmission Status: Received by [facility] Primary Care Physician: Care Physician,No Primary [Primary Care Provider] - Test Results: Test results from this visit will be discussed in further detail at your follow- up appointment, if applicable. Please Follow Up With: Shanelle Chaparro MD - [phone]
[2019-11-26] MEDS: Docusate Sodium 100 MG Capsule PO (22:27)
[2019-11-27] MEDS: Acetaminophen 500 MG Tablet 1000 MG PO ×3 (00:08→12:46)
[2019-11-27] MEDS: Ketorolac 30 MG/ML Syringe IV ×2 (00:08→05:41)
[2019-11-27] MEDS: Lactated Ringers 1,000 ML 70 ML IV (02:02)
[2019-11-27 02:04] VITALS: BP 117/69; PULSE 76; RESP 16; TEMP 36.8; O2SAT 98
[2019-11-27 05:16] LABS: Hematocrit 36.3 % (37-47); Hemoglobin 11.7 g/dL (12.0-15.0); Mean Corp Hgb Conc 32.2 g/dL (32-36); Mean Corpuscular Hgb 28.5 pg (27.0-32.0); Mean Corpuscular Volume 88.5 fL (81-99); Mean Platelet Vol. 12.2 fl (6.2-12.0); Platelet Count 226 K/mm3 (150-450); RBC Distribution Width CV 12.7 % (11.6-14.6); RBC Distribution Width SD 41.1 fl (35.1-43.9); White Blood Count 13.9 K/mm3 (4.4-11.0)
--- NOTE | 2019-11-27 06:14 | NURSING ---
Pulled Tylenol from the accudose earlier to administer and help out Rudy CHAPIN. Med scanned but stated we were over by 1000 mg for 24 hour period. Pt had received 1000 mg at 0640 preop. Called Douglas from Pharmacy and he said that we would probably have to wait until 0640 to administer the 0600 dose so as not to go over the 4000 mg recommended. Pt aware and will notify Rudy CHAPIN.
--- NOTE | 2019-11-27 07:46 | PN.OBGYN_ITS ---
Subjective: patient recovering well, denies CP, SOB, N, or V. patient is ambulating, voiding ,tolerating adequate po, and pain is controlled with oral medications. - Physical Exam Vitals/I&O's: Vital Signs Temp Pulse Resp BP Pulse Ox 98.3 F 76 16 117/69 98 11/27/19 02:04 11/27/19 02:04 11/27/19 02:04 11/27/19 02:04 11/27/19 02:04 Oxygen Flow Rate (L/min) 6 Oxygen Delivery Method Room Air Weight: 187 lb 9.814 oz Body Mass Index (BMI) 33.2 Intake and Output for Last 24 Hours 11/25/19 11/26/19 11/27/19 23:59 23:59 23:59 Intake Total 1881.67 / 1881.67 1600 / 1600 Output Total 1075 / 1075 1750 / 1750 Balance 806.67 / 806.67 -150 / -150 General: Alert, Oriented x3 Laboratory Results 11/26/19 12:40: WBC 16.0 H, RBC 4.51, Hgb 13.6, Hct 39.8, MCV 88.2, MCH 30.2, MCHC 34.2, RDW Std Deviation 39.6, RDW Coeff of Viola 12.3, Plt Count 221, MPV 12.1 H 11/27/19 04:56: WBC 13.9 H, RBC 4.10 L, Hgb 11.7 L, Hct 36.3 L, MCV 88.5, MCH 28.5, MCHC 32.2, RDW Std Deviation 41.1, RDW Coeff of Viola 12.7, Plt Count 226, MPV 12.2 H Current Medications Acetaminophen (Tylenol) 1,000 mg PO Q6 [facility] Last Admin: 11/27/19 06:43 Dose: 1,000 mg Documented by: Docusate Sodium (Colace) 100 mg PO BID [facility] Last Admin: 11/26/19 22:27 Dose: 100 mg Documented by: Enoxaparin Sodium (Lovenox) 40 mg SC DAILY [facility] Lactated Ringer's () 1,000 mls @ 70 mls/hr IV .[id number] [facility] Stop: 11/27/19 09:16 Last Admin: 11/27/19 02:02 Dose: 70 mls/hr Documented by: Ketorolac Tromethamine (Toradol) 30 mg IV Q6 [facility] Stop: 11/27/19 18:01 Last Admin: 11/27/19 05:41 Dose: 30 mg Documented by: Loratadine (Claritin) 10 mg PO DAILY [facility] Magnesium Oxide (Mag-Ox 400) 400 mg PO DAILY PRN PRN PRN Reason: Constipation Nutritional Formula (Lactose Free) (Ensure Enlive) 120 ml PO TIDCM [facility] Last Admin: 11/26/19 17:35 Dose: Not Given Documented by: Ondansetron HCl (Zofran Odt) 4 mg PO Q6H PRN PRN PRN Reason: NAUSEA Last Admin: 11/26/19 14:17 Dose: 4 mg Documented by: Oxycodone HCl (Oxyir) 5 - 10 mg PO Q4H PRN PRN PRN Reason: Pain Score 4-10/10 Last Admin: 11/26/19 20:25 Dose: 5 mg Documented by: Promethazine HCl (Phenergan) 12.5 mg IV Q6H PRN PRN PRN Reason: NAUSEA/VOMITING Last Admin: 11/26/19 17:34 Dose: 12.5 mg Documented by: Promethazine HCl (Phenergan Tablet) 12.5 mg PO Q6H PRN PRN PRN Reason: NAUSEA/VOMITING Sodium Chloride () 10 - 40 ml IV UD PRN PRN Reason: SALINE FLUSH Medical Necessity - Tobacco Use Smoking Status: Light Smoker (<10/day) Tobacco Use: Cigarettes Assessment/Plan All Active Problems (Last Reviewed 11/06/19 @ 14:45 by Jessica Walker) Abnormal uterine bleeding (Acute) screening encounter (Resolved) tubal ligation planned (Resolved) Supervision of normal in first trimester (Resolved) patient is s/p TVHBS LO POD 1 1. routine ERAS protocol postop care- increase ambulation, encourage oral intake and oral control of pain. lovenox and scds for dvt prophylaxis, patient stable for discharge to home.
[2019-11-27 07:52] VITALS: O2SAT 98
[2019-11-27 08:27] VITALS: BP 120/73; PULSE 76; RESP 18; TEMP 37; O2SAT 96
[2019-11-27] MEDS: Loratadine 10 MG Tablet PO (08:28)
[2019-11-27] MEDS: oxyCODONE 5 MG Tablet PO ×2 (08:29→12:46)
[2019-11-27] MEDS: Magnesium Oxide 400 MG Tablet PO (08:29)
[2019-11-27] MEDS: Docusate Sodium 100 MG Capsule PO (08:29)
[2019-11-27] MEDS: Enoxaparin 40 MG/0.4 ML Syringe SC (08:31)
[2019-11-27 13:48] VITALS: BP 107/60; PULSE 102; RESP 16; TEMP 36.6; O2SAT 98
== END 2019-11-27 14:08 | disposition home or self-care (01) ==
LOC: SDC 05:36 → AC 05:37 → MS3 12:32
PROVIDERS: Referring Provider Obstetrics & Gynecology; Visit Provider Obstetrics & Gynecology
PROC: (CPT 58260; principal; 2019-11-26 06:55)
DX: N93.9 Abnormal uterine and vaginal bleeding, unspecified (principal); N72 Inflammatory disease of cervix uteri; D25.2 Subserosal leiomyoma of uterus; N83.12 Corpus luteum cyst of left ovary; N83.02 Follicular cyst of left ovary; Z30.2 Encounter for sterilization; K21.9 Gastro-esophageal reflux disease without esophagitis; F17.210 Nicotine dependence, cigarettes, uncomplicated
CPT/HCPCS: 58262; 36415; 81025; 82962; 85027; 86850; 86900; 86901; 88307; J7120; J2405

== ENCOUNTER → 2019-12-10 16:28 | Outpatient (CLI) | payer BC, SELFPAY ==
[2019-12-10 10:23] VITALS: BMI 33.2
== END ==
PROVIDERS: Referring Provider Nurse Practitioner Women's Health; Visit Provider Nurse Practitioner Women's Health
DX: N39.0 Urinary tract infection, site not specified (principal)
CPT/HCPCS: 87086; 87088

== ENCOUNTER → 2022-07-12 | Outpatient (CLI) | payer BC, SELFPAY ==
--- NOTE | 2022-07-12 10:51 | US_ITS ---
STUDY: THYROID ULTRASOUND REASON FOR EXAM: Female, 31 years old. Enlarged thyroid gland. TECHNIQUE: Ultrasound evaluation of the thyroid was performed with real-time and static bey-scale imaging. COMPARISON: None. FINDINGS: RIGHT LOBE: Measures 4.9 x 1.7 x 1.4 cm. Homogenous echotexture. 0.4 cm upper pole cyst, TR 1. No other nodules. LEFT LOBE: Measures 4.9 x 1.6 x 1.1 cm. Homogenous echotexture. Nodule #1:0.8 x 0.7 x 0.9 cm TRV X AP X CC. Anterior midpole. Solid and isoechoic. Taller than wide. Smooth margins. Contains punctate echogenic foci. TR 5. Nodule #2:0.4 x 0.3 x 0.6 cm. Lateral mid pole. Mixed cystic and solid. Hypoechoic. Taller than wide. Smooth margins. Contains punctate echogenic foci. TR 5. ISTHMUS: The isthmus measures 0.27 cm and is unremarkable. The regional lymph nodes are normal. US/Thyroid IMPRESSION: 2 nodules in the left lobe of the thyroid gland, both of which have highly suspicious features. ACR guidelines recommend annual follow-up ultrasound for nodules of this size and appearance. The larger ultrasound may be amenable to FNA (ACR guidelines would recommend FNA for greater than 1 cm and this nodule measures 0.9 cm). Electronically Signed: Alexei Bess MD at 8:10 EDT Reading Location ID and State: [facility] / [place] Tel , Service support ,
[2022-07-12 11:32] LABS: T4 Free Direct 1.07 ng/dL (0.76-1.46); Thyroid Stim Hormone (TSH) 1.45 uIU/mL (0.358-3.74)
[2022-07-13 22:06] LABS: Thyroid Peroxidase AB 9 IU/mL (0-34)
[2022-07-14 09:31] LABS: Thyroglobulin Antibody < 1.0 IU/mL (0.0-0.9)
== END | disposition home or self-care (01) ==
PROVIDERS: Referring Provider Obstetrics & Gynecology; Visit Provider Obstetrics & Gynecology
DX: E01.0 Iodine-deficiency related diffuse (endemic) goiter (principal)
CPT/HCPCS: 36415; 76536; 84439; 84443; 86376; 86800

== ENCOUNTER → 2022-07-29 | Outpatient (CLI) | payer BC, SELFPAY ==
--- NOTE | 2022-07-29 | IMM_PTH ---
PATIENT: SARKIS TSE LOC: [facility] U#:[id number] AGE/SX: 31/F ROOM: RE07/29/[address]: Dr. Ty Sandoval MD : 1990 BED: DIS: 07/29/2022 SPEC #: [id number] RECD: 08/01/22 12:29 STATUS: KARIE REQ #: [id number] LINDSEY: 07/29/22 00:[address]: Ty Sandoval DEPT: IMMUNOHISTOCHEMISTRY RECD BY: Lizbeth Faye ENTERED: 08/01/22 12:30 SP TYPE: IMMUNO OTHR DR: No Primary Care Phys Tissues: A - Thyroid gland, NOS Procedures: HBME (initial) CD56 (add) CK19 (add) GAL-3 (add) PHYSICIAN & INSTITUTION [place] [id number] SPECIMEN INFORMATION: Tissue Source: A ? Left thyroid nodule Clinical Info: Left thyroid nodule Specimen Number: [id number] CPT code: 77457, 68916 x3 METHODOLOGY: Deparaffinized sections of prefer/formalin-fixed tissue or PAP/DQ stained slides are incubated with monoclonal/polyclonal antibodies/oligonucleotide probes. Localization is made via biotin free immunoperoxidase method. Appropriate controls are performed and reacted as expected. Results on target cell population are indicated in the following table: RESULTS: ANTIBODY / CLONE RESULT Block A HBME1 (HBME-1) positive CK19 (A53-B/A2.26) positive GAL3 (9C4) positive CD56 (123C3.D5) negative These tests were developed and their performance characteristics determined by [facility]. They may not have been cleared or approved by the U.S. Food and Drug Administration. The FDA has determined that such clearance or approval is not necessary. The above immunohistochemical/dualISH markers are ordered and reviewed by the Pathologist. INTERPRETATION: A. Left thyroid nodule, fine needle aspiration (cell block): Malignant cells present derived from papillary thyroid carcinoma. JESU:coby 08/02/2022
--- NOTE | 2022-07-29 | FLU_PTH ---
PATIENT: SARKIS TSE LOC: [facility] U#:[id number] AGE/SX: 31/F ROOM: RE07/29/[address]: Dr. Ty Sandoval MD : 1990 BED: DIS: 07/29/2022 SPEC #: [id number] RECD: 07/29/22 12:10 STATUS: MICHAELLisha LUCIA #: [id number] LINDSEY: 07/29/22 00:[address]: Ty Sandoval DEPT: CYTOLOGY RECD BY: Aidan Mustafa ENTERED: 07/29/22 12:11 SP TYPE: Fluid OTHR DR: No Primary Care Phys Tissues: A - Thyroid gland, NOS B - Thyroid gland, NOS Procedures: Special Stain Group II Surgery Specimen Level IV Cytospin Fluid HEADER OPERATION: Left thyroid nodule fine needle aspiration PRE-OP DIAGNOSIS: Left thyroid nodule TISSUE SUBMITTED: A ? Left thyroid nodule fluid, B ? Left thyroid nodule x8 slides DIAGNOSIS CYTOLOGY A. Left thyroid nodule fluid, fine needle aspiration (cytospin and cell block): Malignant cells present derived from papillary thyroid carcinoma ([place] Category ). Adequate for evaluation. See comment. B. Left thyroid nodule, fine needle aspiration (smears): Malignant cells present derived from papillary thyroid carcinoma ([place] Category ). Adequate for evaluation. :coby 08/02/2022 COMMENT A. Immunohistochemistry ([id number]) supports the above diagnosis. Correlation with clinical, radiologic findings and appropriate follow up are necessary. CYTOLOGY STUDY Slides are reviewed. CYTOLOGY GROSS A - Received is 30 ml of red cloudy fluid labeled with the patient's name and and designated per the requisition as left thyroid nodule. Submitted for cytology preparation including cell block. B - Received are eight smears labeled with the patient's name and designated per the requisition as left thyroid nodule. Submitted for staining. / coby 07/29/2022 TC:0 CPT: 03131 x2, 74951
== END | disposition home or self-care (01) ==
LOC: LABSPEC 11:37
PROVIDERS: Visit Provider Surgery
DX: C73 Malignant neoplasm of thyroid gland (principal)
CPT/HCPCS: 88108; 88305; 88313; 88341; 88342

== ENCOUNTER 2022-08-19 09:26 | Day surgery (SDC) | payer BC, SELFPAY ==
[2022-08-19] VITALS (9 sets, daily range): BP systolic 130–167; BP diastolic 81–101; PULSE 82–109; RESP 16–18; TEMP 36.4–36.8; O2SAT 97–100; BMI 35.3
--- NOTE | 2022-08-19 | THYROID_PTH ---
PATIENT: SARKIS TSE LOC: [facility] [place] U#:[id number] AGE/SX: 31/F ROOM: RE08/19/[address]: Dr. Ty Sandoval MD : 1990 BED: DIS: 08/19/2022 SPEC #: [id number] RECD: 08/19/22 14:22 STATUS: KARIE KHARI #: [id number] LINDSEY: 08/19/22 00:[address]: Ty Sandoval DEPT: SURGICAL PATHOLOGY RECD BY: Aidan Mustafa ENTERED: 08/22/22 10:38 SP TYPE: THYROID OTHR DR: No Primary Care Phys Tissues: Thyroid gland, NOS Procedures: Surgery Specimen Level V HEADER OPERATION: Thyroid lobectomy with isthmusectomy with intraoperative nerve PRE-OP DIAGNOSIS: Papillary microcarcinoma of thyroid TISSUE SUBMITTED: Left thyroid lobe, stitch at left superior pole MICROSCOPIC DIAGNOSIS Left lobe of thyroid, lobectomy: Papillary thyroid carcinoma. See cancer synoptic report below. AM:coby 08/23/2022 COMMENT THYROID CANCER SUMMARY Procedure: Left lobe lobectomy Tumor Focality: Unifocal Tumor Site: Left lobe Tumor Size: 1 x 0.7 x 0.6 cm Histologic Type: Papillary thyroid carcinoma Margins: Free of carcinoma Angioinvasion: Not identified Lymphatic Invasion: Not identified Extrathyroidal Extension: Not identified Regional Lymph Nodes: None found Ancillary Studies: Please see [id number]. Additional Pathologic Findings: Colloid nodules Clinical History: Mass of left thyroid lobe. PATHOLOGIC STAGE: T1 Nx Mx The above summary is in compliance with [employer] [place] [employer] (CAP) Cancer Protocols Checklist and [place] Joint Committee on Cancer (AJCC), Staging Manual, 8th Ed. Immunohistochemistry ([id number]) supports the above diagnosis. Case has been reviewed in consultation with Dr. Arevalo who concurs with the above diagnosis. IDC:SJ Reference is made to the patient's previous left thyroid, FNA ([id number]) in which malignant cells derived from papillary thyroid carcinoma were identified. MICROSCOPIC DESCRIPTION Slides are reviewed. GROSS DESCRIPTION Received in fixative is one container labeled with the patient's name and designated left thyroid lobe, stitch at left superior pole. The specimen consists of a lobectomy and isthmusectomy specimen weighing 5.5 gm. The lobe measures 3.5 x 2 x 1.5 cm and the isthmus measures 1.5 x 1 x 0.4 cm. The specimen is inked as follows: anterior margin, left lobe and isthmus - black, posterior margin - blue, isthmic resection margin - yellow. Serial sections reveal an encapsulated and hemorrhagic mass in the middle portion of the thyroid lobe measuring 1.4 x 0.5 x 0.5 cm. Sections of isthmus do not reveal any mass lesion. The entire specimen is submitted in seven cassettes as follows: 1 - isthmus, 2-7 - left lobe (2 containing most superior portion and 7 containing most inferior portion). / SJ:rg 08/22/2022 TC:0 CPT: 61109
--- NOTE | 2022-08-19 | IMM_PTH ---
PATIENT: SARKIS TSE LOC: [facility] [place] U#:[id number] AGE/SX: 31/F ROOM: RE08/19/[address]: Dr. Ty Sandoval MD : 1990 BED: DIS: 08/19/2022 SPEC #: [id number] RECD: 08/23/22 13:42 STATUS: KARIE REQ #: [id number] LINDSEY: 08/19/22 00:[address]: Ty Sandoval DEPT: IMMUNOHISTOCHEMISTRY RECD BY: Lizbeth Faye ENTERED: 08/23/22 13:44 SP TYPE: IMMUNO OTHR DR: No Primary Care Phys Tissues: Thyroid gland, NOS Procedures: Thyroglobulin (add) CD56 (add) CK19 (add) GAL-3 (add) HBME (add) P53 (add) Pankeratin (initial) PHYSICIAN & INSTITUTION [place] [id number] SPECIMEN INFORMATION: Tissue Source: Left lobe of thyroid, lobectomy Clinical Info: Papillary microcarcinoma of thyroid Specimen Number: [id number] #5 CPT code: 91831, 95184 x6 METHODOLOGY: Deparaffinized sections of prefer/formalin-fixed tissue or PAP/DQ stained slides are incubated with monoclonal/polyclonal antibodies/oligonucleotide probes. Localization is made via biotin free immunoperoxidase method. Appropriate controls are performed and reacted as expected. Results on target cell population are indicated in the following table: RESULTS: ANTIBODY / CLONE RESULT Block 5 AE1-3 (AE1/AE3/PCK26) positive HBME1 (HBME-1) positive CK19 (A53-B/A2.26) positive GAL3 (9C4) positive CD56 (123C3.D5) negative Thyro (2H11+6E1) negative P53 (DO-7) negative These tests were developed and their performance characteristics determined by [facility]. They may not have been cleared or approved by the U.S. Food and Drug Administration. The FDA has determined that such clearance or approval is not necessary. The above immunohistochemical/dualISH markers are ordered and reviewed by the Pathologist. INTERPRETATION: Left lobe of thyroid, lobectomy: Papillary thyroid carcinoma. AM:coby 08/24/2022
[2022-08-19] MEDS: Lactated Ringers 1,000 ML 15 ML IV (10:07)
--- NOTE | 2022-08-19 10:38 | PCM.HP.BLA ---
History and Physical Date of Admission: 08/19/22 Date of Service:? 08/09/22 MR#: [id number] Acct: [id number] Name:SARKIS DESHPANDE Rep #: [id number] : 1990 ? ? Provider: Dr. Ty Sandoval MD Age/Sex:? 31/F ? ? Location: [facility] Status: Signed Intake Intake Visit Reasons:?Discuss thyroid bx results Chief Complaint: post thyroid FNA [place] Required: No Is patient in pain?: No Allergies amoxicillin Adverse Reaction (Verified 08/09/22 09:35) Fever and skin rashPenicillins Adverse Reaction (Verified 08/09/22 09:35) Fever and skin rash Medications cetirizine 10 mg capsule (Zyrtec) 10 mg PO DAILY 10/24/19 [History Confirmed 08/09/22] venlafaxine 75 mg capsule,extended release 24 hr (Effexor XR) 75 mg PO DAILY #30 caps 07/12/22 [Rx Confirmed 08/09/22] Is last menstrual period known: No Post menopausal: No Patient : No PFSH Surgical History? H/O tubal ligation History of total vaginal hysterectomy (TVH) Hx of cholecystectomy S/P thyroid biopsy (~07/2022) Family History? Grandmother Colon cancer Social History? Smoking Status:? Light Smoker (<10/day) alcohol intake:? never substance use type:? does not use caffeine:? Yes what type of physical activity do you participate in:? none seatbelt use:? always do you feel safe at home:? Yes additional social history:? [employer] Patient works at [employer] HPI HPI HPI: Patient is a 31-year-old female who presents for thyroid nodules.? They were initially referred for surgical consultation from Dr. Chaparro and had their first surgical consultation on 07/29/2022.? During that visit patient had fine-needle aspiration of TI-RADS 5 left-sided nodule which returned consistent with papillary thyroid carcinoma.? She presents today with her for a discussion of her treatment options.? He has a number of questions related to this diagnosis and the likelihood for any spread from the thyroid.? She also wishes to know what her recovery is expected to be like if any intervention is required. Below is recapitulated from initial consultation history for ease of review: This was discovered during a recent exam for work-up of anxiety, depression, and a 60 pound weight gain over the last 1 year. They do not experience difficulty with swallowing.? They do not complain of a new cough.? They do not appreciate new voice changes.? They do not have a history of snoring/sleep apnea. As above, Mrs. Pena reports a weight gain of approximately 60 pounds.? 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 She states that her calorie intake has not necessarily changed, but she does admit to a significant activity decrease.? There is also a history of recent fatigue which she believes goes along with her anxiety and depression.? They do have a history of heat intolerance and she comments that she is always sweating and those around her complain that she has the temperature set too cooly.? ? Other symptoms include: Some hair thinning.? They do not have a family history of thyroid disorders or endocrinopathies that she is aware, however, she states that her mother had her thyroid looked into, but nothing significant was found. Previous work-up has included thyroid ultrasound.? This demonstrates a right thyroid lobe that measured 4.9 x 1.7 x 1.4 cm.? Within the upper pole there is a TI-RADS 1 cyst that measures 0.4 cm in greatest dimension.? The left lobe measured 4.9 x 1.6 x 1.1 cm.? 2 nodules were described.? A 0.8 x 0.7 x 0.9 cm TI-RADS 5 nodule was seen in the anterior midpole portion of the lobe.? Then a 0.4 x 0.3 x 0.6 mixed cystic and solid nodule was seen in the lateral midpole portion of the lobe.? This was also given a TI-RADS rating of 5.? An FNA has not been performed.? Other tests include: TSH 1.45 (07/12/2022), T4 1.07 (07/12/2022), anti-TPO antibodies 9 international units/mL (07/12/2022). Exam Const General: cooperative and anxious Orientation: alert, awake and oriented x3 Neck Other: Mild bruising from biopsy site otherwise no nodularity or lymphadenopathy palpable Assessment and Plan Assessment and Plan (1) Papillary microcarcinoma of thyroid: ?Status:?Acute ?Comment: This is a 31-year-old female, euthyroid from an endocrine standpoint, with recently diagnosed papillary microcarcinoma of the left thyroid lobe the FNA biopsy 07/27/2022.? We discussed management options to include active surveillance versus left thyroid lobectomy and isthmusectomy versus total thyroidectomy.? Personal drawings were used to enhance this discussion.? I have recommended, based on patient preferences and admitted predisposition to anxiety, that we consider a left thyroid lobectomy with isthmusectomy using intraoperative nerve monitoring.? Patient expresses concerns about her family history with a maternal grandmother who was diagnosed with colon cancer at the age of 47 that reportedly spread to her thyroid.? She therefore does request intervention and prefers the recommended approach.? We held a conversation related to the risks of surgery and specifically the parathyroid glands and recurrent laryngeal nerves.? We also discussed the option for total thyroidectomy and the trade-offs with postoperative surveillance being able to use a thyroglobulin level as a surrogate for thyroid tissue when a total thyroidectomy has been performed.? Lastly we discussed the potential for using TSH suppression to mitigate the risk for recurrence.? Patient and expressed understanding of this information and wished to proceed as soon as possible for thyroid lobectomy. ?Plan: ? Plan for left thyroid lobectomy and isthmusectomy using intraoperative nerve monitoring.? Procedure to be done as an outpatient procedure. I have re-examined the patient. There are no clinical changes since date of exam. We reviewed operative and postoperative expectations. Patient presents with family and neither she nor her family have any further questions. Therefore we will proceed to the operating room for scheduled left thyroid lobectomy with isthmusectomy using intraoperative nerve monitoring.
--- NOTE | 2022-08-19 13:39 | PCM.OPRPT ---
Report of Operation Date of Procedure: 08/19/22 Pre-Operative Diagnosis: Biopsy-proven papillary thyroid microcarcinoma of the left thyroid lobe Post-Operative Diagnosis: Same Surgery/Procedure Performed:: Left thyroid lobectomy with isthmusectomy and intraoperative nerve monitoring Description of Surgical Findings:: ? Some biopsy change with muscle initially adherent to the anterior capsule, but easily displaced with a sweeping motion ? No palpable lymphadenopathy of the level 6 cervical nodes ? Visually and functionally intact left recurrent laryngeal nerve ? Grossly identified left superior parathyroid gland Surgeon: Ty Sandoval document imaging manager: Ginny Quezada Type of Anesthesia: General/Supplemental Anesthesiologist: Aurelio Hauser Specimen's removed: Left thyroid lobe with stitch marking the superior pole Drains: None Estimated Blood Loss (mL): 25 Description of Procedure: After appropriate identification in the preoperative holding area, the patient was brought to the operating room where she was positioned supine on the operating room table. Induction of general endotracheal anesthetic was begun and a NIMS tube was placed under glidescope view to confirm coaptation with the vocal cords anteriorly. Tube was then secured and the patient was positioned with a shoulder roll so that her head was in extension but supported. The Nims electrodes were placed and connected to the monitor. We had appropriate resistance showing on the monitor and tapping at the level of the cricoid produce a graphical representation of the impulse on the monitor. Patient's neck was then prepped and draped in usual sterile fashion and a formal timeout was conducted from those present. The lowest skin fold to the sternal notch was selected for incision site (this resided approximately 2 fingerbreadths cephalad to the sternal notch). An incision was extended for 2cm on either side of midline. Electrocautery was used to deepen this incision through the level of the platysma. Just beneath the platysma there were 2 large and dilated anterior jugular veins. Not wanting to incur bleeding I chose to dissect the midportion of the right anterior jugular vein (which began to override the midline) and secured this with silk ligatures proximally and distally then divided the vein between them. With this vein secured, subplatysmal flaps were raised with the use of electrocautery and blunt dissection. The strap muscles were then divided along the medial raphe bringing us down to the level of the thyroid. Capsular attachments to the left thyroid lobe were divided with the use of LigaSure or bluntly dissected away. Retractors were placed regarding excellent visualization of the superior pole of the thyroid. The vessels of the superior pole were sequentially ligated with the use of the LigaSure device. As we moved towards the thyroid gland away from the pole vessels, we were careful to identify the superior parathyroid gland and preserve it in its entirety. We then moved inferiorly and divided those polar vessels with LigaSure. The inferior parathyroid gland was not immediately apparent, but we stuck strictly to a capsular dissection. With the poles freed the thyroid was mobilized medially by taking the middle thyroid vein and its branches. I bluntly the remaining strap muscle fibers from the thyroid capsule and using blunt dissection parallel to the presumed course of the recurrent laryngeal nerve, exposed the tracheoesophageal groove. Here I encountered a positive signal for the left recurrent laryngeal nerve and was shortly thereafter able to visualize the nerve. The nerve positively identified, I relieved the attachments of the thyroid gland to the underlying trachea with the use of LigaSure. As we again approached the nerve insertion of the cricothyroid membrane, I elected to leave a minuscule amount of thyroid tissue intact in the region of the ligament of Viveros using 4-0 silk ligatures. The recurrent laryngeal nerve signal was checked prior to the division of any thyroid tissue. Medially I examined the thyroid gland over the area of the isthmus for any signs of a pyramidal lobe but found none. Once I had assured clearance from the nerve, the remaining thyroid tissue was removed from the anterior surface of the trachea with electrocautery to include the entirety of the thyroid isthmus. The specimen was divided with the LigaSure device for hemostasis. The specimen was oriented with a marking stitch through the superior pole of the left lobe then passed off the field for permanent section. Pressure was applied to the surgical cavity and the cavity was irrigated. The recurrent laryngeal nerve was checked for a signal and our monitor showed a very normal-appearing amplitude with stimulation. There did not appear to be any significant bleeding, but adjacent the nerve I placed a small swatch of Surgicel hemostatic agent was placed while pressure was applied. The Surgicel remained white in color and confirming this hemostasis, I began closure of the wound. The strap muscles were closed with a running 3-0 Vicryl stitch leaving a small gap at the inferior aspect of the suture line. The platysmal flaps were closed with interrupted 3-0 Vicryl. Some additional local anesthetic was infiltrated throughout the dermis and the skin was closed in a subcuticular fashion using 4-0 Monocryl. Steri-Strips were applied. Telfa and Tegaderm were used as a dressing. The patient was then awakened from anesthetic without event and was taken to PACU for ongoing recovery. Complications None Admit VTE Documentation VTE Present on Admission: Yes VTE Mechan Device Prophylaxis: SCD's Procedures Endocrine CF Procedures [id number]: 51611 Partial thyroid excision
--- NOTE | 2022-08-19 13:43 | DCINST_ITS ---
Discharge Instructions Diet Discharge Diet: Soft diet Activity Discharge Activity: May Not Drive (While it remains difficult to check blind spots quickly) May shower in (days): 2 Ice area for (Minutes): 20 Lifting Restrictions: No lifting greater than 15 pounds for 2 weeks after surgery Dressing / Incision Call your doctor if your incision/area has: Continuous Slow Oozing, Sudden Increased Bleeding, Increased Pain/ Swelling, Increased Redness and Swelling at the incision site Call your doctor if you observe: Numbness or Tingling Remove Dressing in: 2 days (Please leave Steri-Strips intact until they fall off spontaneously or are taken off at your follow-up visit) Cleanse incision/area with: Soap & Water Follow Up Care Please Follow Up With: Ty Sandoval MD When: 7 days postop Test Results: Test results from this visit will be discussed in further detail at your follow- up appointment, if applicable. Discharge Plan Admission Primary Reason for Your Visit: Partial thyroidectomy Attending Provider: Ty Sandoval Primary Care Provider: Care Physician,Ayana Primary Discharge Orders/Prescriptions Prescriptions: No Action Zyrtec 10 mg capsule 10 mg PO DAILY venlafaxine [Effexor XR] 75 mg capsule,extended release 24hr 75 mg PO DAILY Qty: 30 12RF Referrals / Follow Up: Care Physician,No Primary [Primary Care Provider] - Disposition Disposition (needs filled in before D/C Order can be placed): Home, Self Care
--- NOTE | 2022-08-19 15:55 | SUR.PHASEII ---
C/O ANTERIOR NECK PAIN 6/10, VERY TENDER TO THE LIGHTEST TOUCH OR ICE PACK. VOICE NORMAL, NO DIFFICULTY VOCALIZING, TAKING PO FLUIDS ONLY AT THIS TIME. ALSO NOTES SORE THROAT MOST LIKELY D/T INTUBATION. ASKING FOR PAIN MEDICATION. MILD NAUSEA. NOTIFIED DR OVERTON. PATIENT NEEDS ENCOURAGED TO TAKE PO SNACK MORE THAN FLUIDS IF WANTING TO TAKE PAIN MEDS. 1605 DR OVERTON AT BEDSIDE TO EVAL PATIENT. ORDERED TYLENOL PO; ENCOURAGED PATIENT TO ALTERNATE TYLENOL WITH IBUPROFEN AT HOME FOR PAIN MANAGEMENT.
[2022-08-19] MEDS: Acetaminophen 325 MG Tablet 650 MG PO (16:15)
--- NOTE | 2022-08-19 17:12 | SUR.PHASEII ---
75 ML EMESIS AFTER TAKING PO JELLO & BROTH. DR KAY NOTIFIED, ORDERED SCOPOLAMINE PATCH, IV BENADRYL & REGLAN. COMFORT MEASURES GIVEN.
== END 2022-08-19 18:09 | disposition home or self-care (01) ==
LOC: SDC 09:26 → AC 09:27
PROVIDERS: Referring Provider Surgery; Visit Provider Surgery
PROC: (CPT 60210; principal; 2022-08-19 10:45)
DX: C73 Malignant neoplasm of thyroid gland (principal); F32.A Depression, unspecified; F41.9 Anxiety disorder, unspecified; F17.200 Nicotine dependence, unspecified, uncomplicated; Z79.899 Other long term (current) drug therapy
CPT/HCPCS: 60210; 00320; 88307; 88341; 88342; J7120; J2405; J3490

== ENCOUNTER → 2022-09-23 | Outpatient (CLI) | payer BC, SELFPAY ==
[2022-09-23 13:52] LABS: Free T3 2.7 pg/mL (2.18-3.98); T4 Total, Thyroxin 10.7 ug/dL (4.8-13.9); Thyroid Stim Hormone (TSH) 3.38 uIU/mL (0.358-3.74)
== END | disposition home or self-care (01) ==
LOC: LAB 12:39
PROVIDERS: Referring Provider Surgery; Visit Provider Surgery
DX: E89.0 Postprocedural hypothyroidism (principal)
CPT/HCPCS: 36415; 84436; 84443; 84481

== ENCOUNTER → 2023-01-06 | Outpatient (CLI) | payer BC, SELFPAY ==
[2023-01-06 13:49] LABS: Follicle Stimulating Hormone 7.6 mIU/mL; Luteinizing Hormone 5.1 mIU/mL; Thyroid Stim Hormone (TSH) 3.75 uIU/mL (0.358-3.74)
== END | disposition home or self-care (01) ==
LOC: LAB 12:38
PROVIDERS: Referring Provider Internal Medicine Endocrinology, Diabetes & Metabolism; Visit Provider Internal Medicine Endocrinology, Diabetes & Metabolism
DX: C73 Malignant neoplasm of thyroid gland (principal); E89.0 Postprocedural hypothyroidism; N95.1 Menopausal and female climacteric states
CPT/HCPCS: 36415; 83001; 83002; 84443

== ENCOUNTER → 2023-07-12 | Outpatient (CLI) | payer BC, SELFPAY ==
[2023-07-12 14:29] LABS: T4 Free Direct 0.91 ng/dL (0.76-1.46); Thyroid Stim Hormone (TSH) 1.77 uIU/mL (0.358-3.74)
== END | disposition home or self-care (01) ==
PROVIDERS: Referring Provider Internal Medicine Endocrinology, Diabetes & Metabolism; Visit Provider Internal Medicine Endocrinology, Diabetes & Metabolism
DX: E03.9 Hypothyroidism, unspecified (principal)
CPT/HCPCS: 36415; 84439; 84443

== ENCOUNTER → 2023-10-16 | Outpatient (CLI) | payer BC, SELFPAY ==
[2023-10-16 15:15] LABS: Absolute Lymphocyte Count 1.99 X10^3/uL (0.83-4.51); Absolute Neutrophil Count 4.8 X10^3/uL (2.0-7.7); Basophil# 0.08 X10^3/uL; Eosinophil# 0.31 X10^3/uL; Eosinophils% 3.9 % (0-5); Hematocrit 44.1 % (37-47); Hemoglobin 13.8 g/dL (12.0-15.0); Lymphocyte # 1.99 X10^3/ul (0.83-4.51); Lymphocyte % 25.3 % (19-41); Mean Corp Hgb Conc 31.3 g/dL (32-36); Mean Corpuscular Hgb 28.3 pg (27.0-32.0); Mean Corpuscular Volume 90.6 fL (81-99); Mean Platelet Vol. 12.1 fl (6.2-12.0); Monocyte# 0.65 X10^3/uL; Monocyte% 8.3 % (0-10); NRBC Flagged by Analyzer 0 % (0-5); Neutrophil # 4.82 X10^3/uL (2.7-7.7); Neutrophil % 61.2 % (47-70); Platelet Count 305 K/mm3 (150-450); RBC Distribution Width CV 12.9 % (11.6-14.6); RBC Distribution Width SD 42.6 fl (35.1-43.9); Red Blood Count 4.87 M/mm3 (4.2-5.4); White Blood Count 7.9 K/mm3 (4.4-11.0)
[2023-10-16 15:31] LABS: AST(SGOT) 17 U/L (15-37); Alanine Aminotransfer ALT/SGPT 25 U/L (13-56); Albumin, Serum 3.7 g/dL (3.2-5.0); Alkaline Phosphatase 80 U/L (45-117); Anion Gap 8 (5-15); BUN 11 mg/dL (7-18); BUN/Creat Ratio 10.5 RATIO (10-20); Calcium,Total 8.7 mg/dL (8.5-10.1); Chloride 107 mmol/L (98-107); Creatinine, Serum 1.05 mg/dL (0.55-1.02); EST Glomerular Filtration Rate 65 mL/min (>60); Est Glom Filt Rate - Afr Amer 79 mL/min (>60); Globulin 3.8 g/dL (2.2-4.2); Glucose 90 mg/dL (74-106); Protein, Total 7.5 g/dL (6.4-8.2); Sodium Level 141 mmol/L (136-145)
[2023-10-16 15:36] LABS: Vitamin D,25 Hydroxy 21.9 ng/mL
== END | disposition home or self-care (01) ==
LOC: BIMLAB 12:22
PROVIDERS: PCP Internal Medicine; Referring Provider Internal Medicine; Visit Provider Internal Medicine
DX: F41.8 Other specified anxiety disorders (principal)
CPT/HCPCS: 36415; 80053; 82306; 85025

== ENCOUNTER → 2024-05-21 | Outpatient (CLI) | payer BC, SELFPAY ==
[2024-05-21 15:45] LABS: Absolute Lymphocyte Count 2.42 X10^3/uL (0.83-4.51); Absolute Neutrophil Count 4.5 X10^3/uL (2.0-7.7); Basophil# 0.12 X10^3/uL; Basophil% 1.4 % (0-1); Eosinophil# 0.88 X10^3/uL; Eosinophils% 10.2 % (0-5); Hematocrit 42.9 % (37-47); Hemoglobin 13.9 g/dL (12.0-15.0); Lymphocyte # 2.42 X10^3/ul (0.83-4.51); Lymphocyte % 28.1 % (19-41); Mean Corp Hgb Conc 32.4 g/dL (32-36); Mean Corpuscular Hgb 29.3 pg (27.0-32.0); Mean Corpuscular Volume 90.5 fL (81-99); Mean Platelet Vol. 12.3 fl (6.2-12.0); Monocyte# 0.63 X10^3/uL; Monocyte% 7.3 % (0-10); NRBC Flagged by Analyzer 0 % (0-5); Neutrophil # 4.54 X10^3/uL (2.7-7.7); Neutrophil % 52.7 % (47-70); Platelet Count 269 K/mm3 (150-450); RBC Distribution Width CV 12.6 % (11.6-14.6); RBC Distribution Width SD 41.4 fl (35.1-43.9); Red Blood Count 4.74 M/mm3 (4.2-5.4); White Blood Count 8.6 K/mm3 (4.4-11.0)
[2024-05-21 15:52] LABS: ALB/GLOB Ratio 1.1 RATIO (0.9-2.4); AST(SGOT) 17 U/L (15-37); Alanine Aminotransfer ALT/SGPT 29 U/L (13-56); Albumin, Serum 3.6 g/dL (3.2-5.0); Alkaline Phosphatase 71 U/L (45-117); Anion Gap 6 (5-15); BUN 9 mg/dL (7-18); BUN/Creat Ratio 9.6 RATIO (10-20); Calcium,Total 8.6 mg/dL (8.5-10.1); Chloride 107 mmol/L (98-107); Cholesterol 139 mg/dL (200); Creatinine, Serum 0.94 mg/dL (0.55-1.02); EST Glomerular Filtration Rate 74 mL/min (>60); Est Glom Filt Rate - Afr Amer 90 mL/min (>60); Globulin 3.4 g/dL (2.2-4.2); Glucose 104 mg/dL (74-106); High Density Lipoprotein 55 mg/dL; Potassium 3.8 mmol/L (3.5-5.1); Sodium Level 139 mmol/L (136-145); T4 Free Direct 0.99 ng/dL (0.76-1.46); Thyroid Stim Hormone (TSH) 2.96 uIU/mL (0.358-3.74); Triglycerides 182 mg/dL; Very Low Density Lipoprotein 36 mg/dL (5-40)
[2024-05-23 13:55] LABS: Vitamin D,25 Hydroxy 24.7 ng/mL
== END | disposition home or self-care (01) ==
LOC: BIMLAB 12:09
PROVIDERS: PCP Internal Medicine; Referring Provider Internal Medicine; Visit Provider Internal Medicine
DX: R12 Heartburn (principal); E03.9 Hypothyroidism, unspecified; E55.9 Vitamin D deficiency, unspecified
CPT/HCPCS: 36415; 80053; 80061; 82306; 84439; 84443; 85025

== ENCOUNTER → 2024-07-10 | Outpatient (CLI) | payer BC, SELFPAY ==
[2024-07-10 15:34] LABS: T3 Total - Triiodothyronine 1.22 ng/mL (0.6-1.81)
[2024-07-10 15:40] LABS: T4 Free Direct 0.87 ng/dL (0.76-1.46)
== END | disposition home or self-care (01) ==
LOC: BIMLAB 12:14
PROVIDERS: PCP Internal Medicine; Referring Provider Internal Medicine; Visit Provider Internal Medicine
DX: E03.9 Hypothyroidism, unspecified (principal); C73 Malignant neoplasm of thyroid gland
CPT/HCPCS: 36415; 84439; 84443; 84480

== ENCOUNTER → 2024-08-28 | Outpatient (CLI) | payer BC, SELFPAY ==
[2024-08-28 16:15] LABS: T4 Free Direct 0.89 ng/dL (0.76-1.46)
== END | disposition home or self-care (01) ==
LOC: BIMLAB 12:09
PROVIDERS: PCP Internal Medicine; Referring Provider Nurse Practitioner; Visit Provider Nurse Practitioner
DX: E03.9 Hypothyroidism, unspecified (principal)
CPT/HCPCS: 36415; 84439; 84443

== ENCOUNTER → 2025-06-06 | Outpatient (CLI) | payer BC, SELFPAY ==
--- NOTE | 2025-06-06 12:46 | US_ITS ---
PROCEDURE: THYROID 06/06/2025 REASON FOR EXAM: HISTORY OF THYROID CANCER TECHNIQUE: THYROID COMPARISON: Thyroid ultrasound on 07/12/2022 FINDINGS: Right thyroid lobe size: 5.6 x 1.7 x 1.6 cm Left thyroid lobe: Surgically absent. Residual thyroid tissue measures 0.5 x 0.6 x 0.4 cm. Isthmus: cm Background parenchymal echotexture is homogeneous. Nodules: 1. Lobe: Right, Location: Upper, Size: 0.6 x 0.3 x 0.4 cm, Stability: Stable Composition: Echogenicity: Anechoic (+0) Margin: Smooth (+0) Shape: Wider than tall (+0) Echogenic Foci: None (+0) TI-RADS: 1 2. Lobe: Right, Location: Mid, Size: 0.6 x 0.3 x 0.4 cm cm, Stability: New Composition: Solid or almost completely solid (+2) Echogenicity: Hypoechoic (+2) Margin: Smooth (+0) Shape: Wider than tall (+0) Echogenic Foci: None (+0) TI-RADS: 4 US/Thyroid IMPRESSION: 1. There are a few right thyroid lobe nodules as detailed above. Consider con tinued ultrasound follow-up given patient's history of malignancy. 2. Postoperative changes from left thyroidectomy, with minimal residual tissue . Reading Location: [id number]
== END | disposition home or self-care (01) ==
LOC: US 12:23
PROVIDERS: PCP Internal Medicine; Referring Provider Internal Medicine; Visit Provider Internal Medicine
DX: Z85.850 Personal history of malignant neoplasm of thyroid (principal)
CPT/HCPCS: 76536